=== PATIENT | female | born 1995 | race Caucasian/White ===

== ENCOUNTER 2021-01-09 12:12 | Emergency (ER) | payer MEDICAID ==
[~2021-01-09] VITALS: Ht 162.6 cm; Wt 52.3 kg
[2021-01-09 12:17] VITALS: BP 138/84
== END 2021-01-09 12:49 | disposition left against medical advice (07) ==
LOC: ER 12:13
DX: Z23 Encounter for immunization (principal); Z53.21 Procedure and treatment not carried out due to patient leaving prior to being seen by health care provider